=== PATIENT | female | born 1970 | race American Indian/Alaskan Native ===

== ENCOUNTER 2017-01-02 20:18 | Emergency (ER) | payer SELFPAY ==
[2017-01-02 20:36] VITALS: BP 142/94
[2017-01-02] MEDS ORDERED: DUONEB 0.5 MG-3 MG/3 ML SOLN IH ONE (20:51)
[2017-01-02] MEDS ORDERED: DELTASONE PO ONE (20:52)
--- NOTE | 2017-01-02 20:58 | Emergency Department Report ---
HPI - General Chief Complaint: Dyspnea/Respdistress Time Seen by Provider: 01/02/17 20:34 - HPI HPI: This is a 46-year-old -[place] female who presents the emergency department with complaint of some wheezing, tightness and shortness of breath that has been going on for the past 1-2 days. The patient has a history of asthma and thinks she is having an asthma exacerbation. She is visiting from [place], where she has a primary care physician. She does not have a current inhaler. She says that she has a nebulizer machine but is missing the mouthpiece and lost the nebulized albuterol treatments. She says she called EMS hoping they can give her a mouthpiece and some breathing treatments but says they were unable to do so without transportation to the ER. She denies any chest pain, fever, back pain, nausea, vomiting. She denies being a tobacco smoker. ED Past Medical Hx - Past Medical History Previous Medical History?: Yes Hx Hypertension: No Hx CVA: No Hx Heart Attack/AMI: No Hx Congestive Heart Failure: No Hx Diabetes: No Hx Deep Vein Thrombosis: No Hx Pulmonary Embolism: No Hx GERD: No Hx Liver Disease: No Hx Renal Disease: No Hx of Cancer: No Hx Sickle Cell Disease: No Hx Arthritis: No Hx Headaches / Migraines: No Hx Seizures: No Hx Kidney Stones: No Hx Psychiatric Treatment: No Hx Asthma: Yes Hx COPD: No Hx Tuberculosis: No Hx Dementia: No Additional medical history: lupus - Surgical History Past Surgical History?: No Hx Coronary Stent: No Hx Open Heart Surgery: No Hx Internal Defibrillator: No Hx Cholecystectomy: No Hx Appendectomy: No Hx Breast Surgery: No - Social History Smoking Status: Current Every Day Smoker Substance Use Type: None - Medications Home Medications: Home Medications Medication Instructions Recorded Confirmed Last Taken Type ALBUTEROL Inhaler [ProAir HFA 2 puff IH QID PRN #1 inhalation 01/03/17 Unknown Rx Inhaler] ALBUTEROL NEB's [Proventil 0.083% 2.5 mg IH TID PRN #1 box 01/03/17 Unknown Rx NEBS] predniSONE [Deltasone] 20 mg PO QDAY #4 tab 01/03/17 Unknown Rx ED Review of Systems ROS: Stated complaint: ASTHMA Other details as noted in HPI Comment: All other systems reviewed and negative Constitutional: denies: chills, fever Eyes: denies: eye pain, eye discharge, vision change ENT: denies: ear pain, throat pain Respiratory: shortness of breath, wheezing Cardiovascular: denies: chest pain, edema Gastrointestinal: denies: abdominal pain, nausea, diarrhea Genitourinary: denies: urgency, dysuria, discharge Musculoskeletal: denies: back pain, joint swelling, arthralgia Skin: denies: rash, lesions Neurological: denies: headache, weakness, paresthesias Physical Exam - Physical Exam Vital Signs: Vital Signs 01/02/17 20:30 Temperature 98.6 F Pulse Rate 89 Respiratory 17 Rate Blood Pressure 142/94 O2 Sat by Pulse 96 Oximetry Physical Exam: GENERAL: The patient is well-developed well-nourished. HEENT: Normocephalic. Atraumatic. Extraocular motions are intact. Patient has moist mucous membranes. Pupils equal reactive to light bilaterally. NECK: Supple. Trachea is midline. CHEST/LUNGS: There is mild expiratory wheezing throughout the chest. No tachypnea or accessory muscle use. No cough heard during examination. There is no respiratory distress noted. HEART/CARDIOVASCULAR: Regular. There is no tachycardia. There is no gallop rub or murmur. ABDOMEN: Abdomen is soft, nontender. Patient has normal bowel sounds. There is no abdominal distention. SKIN: Skin is warm and dry. NEURO: The patient is awake, alert, and oriented. The patient is cooperative. The patient has no focal neurologic deficits. The patient has normal speech and gait. MUSCULOSKELETAL: There is no tenderness or deformity. There is no limitation range of motion. There is no evidence of acute injury. ED Course Vital Signs 01/02/17 20:30 Temperature 98.6 F Pulse Rate 89 Respiratory 17 Rate Blood Pressure 142/94 O2 Sat by Pulse 96 Oximetry ED Medical Decision Making - Lab Data Result diagrams: 01/02/17 21:52 01/02/17 21:52 - EKG Data -: EKG Interpreted by Me EKG shows normal: sinus rhythm, axis, intervals, QRS complexes, ST-T waves Rate: normal - EKG Data When compared to previous EKG there are: previous EKG unavailable Interpretation: normal EKG - Radiology Data Radiology results: image reviewed interpreted by me: Chest x-ray did not show any acute process. Heart is normal shape and size. No effusions. No pneumothorax. No signs of pneumonia seen. - Medical Decision Making 46-year-old female presents emergency Department with the complaint of some wheezing, tightness in the chest that feels like an asthma exacerbation. However the patient is out of her albuterol inhaler and nebulized treatments and the mouthpiece for the nebulizer. Some labs were done on this patient to make sure that the chest tightness was in fact as well as a post-any coronary artery disease. She had a negative troponin, no leukocytosis, no electrolyte abnormalities. EKG is normal without ST elevation OK, ischemia or dysrhythmia. Chest x-ray does not show any acute process. She was given some breathing treatments and says she feels improved. Patient came out of her room asking for discharge home. She was given a prescription for albuterol inhaler and nebulizer treatments as well as steroids and the patient is headed straight across the street to the 24-hour pharmacy. She has been encouraged to return to the ER with any worsening of her symptoms or any acute distress. - Differential Diagnosis asthma, bronchitis, OK, pneumonia Critical Care Time: No Critical care attestation.: If time is entered above; I have spent that time in minutes in the direct care of this critically ill patient, excluding procedure time. ED Disposition Clinical Impression: Asthma exacerbation, Bronchospasm Disposition: DISCHARGED TO HOME OR SELFCARE Is pt being admited?: No Condition: Stable Instructions: Asthma (ED) Additional Instructions: These follow-up with a primary care doctor as soon as possible. Return to the emergency department with any worsening of your symptoms or any acute distress. Prescriptions: ALBUTEROL Inhaler [ProAir HFA Inhaler] 2 puff IH QID PRN #1 inhalation PRN Reason: Shortness Of Breath ALBUTEROL NEB's [Proventil 0.083% NEBS] 2.5 mg IH TID PRN #1 box PRN Reason: Wheezing predniSONE [Deltasone] 20 mg PO QDAY #4 tab Referrals: PRIMARY CARE, [Primary Care Provider] - 3-5 Days LAUREN SADLER MD [Staff Physician] - 3-5 Days [facility] [Outside] - 3-5 Days Time of Disposition: 00:40
[2017-01-02 22:02] LABS: Basophils % (Auto) 0.4 % (0.0-1.8); Eosinophils % (Auto) 2.7 % (0.0-4.3); Hematocrit 37.2 % (30.3-42.9); Hemoglobin 12.4 gm/dl (10.1-14.3); Mean Corpuscular HGB Conc 33 % (30-34); Mean Corpuscular Hemoglobin 31 pg (28-32); Mean Corpuscular Volume 93 fl (79-97); Platelet Count 225 K/mm3 (140-440); Red Blood Count 4.01 M/mm3 (3.65-5.03)
[2017-01-02 22:23] LABS: Anion Gap 17 mmol/L; Blood Urea Nitrogen 15 mg/dL (7-17); Calcium 8.6 mg/dL (8.4-10.2); Carbon Dioxide 24 mmol/L (22-30); Chloride 102.4 mmol/L (98-107); Glucose 82 mg/dL (65-100); Potassium 4.4 mmol/L (3.6-5.0); Sodium 139 mmol/L (137-145)
[2017-01-02] MEDS ORDERED: PROVENTIL IH ONE (23:10)
--- NOTE | 2017-01-03 08:34 | XRay Report ---
AP CHEST :01/02/17 20:18:00 CLINICAL: Difficulty breathing. COMPARISON:None. FINDINGS: Normal heart and pulmonary vasculature. The lungs are normally expanded and clear. The bones and soft tissues are normal. IMPRESSION: Normal chest.
== END 2017-01-03 01:32 | disposition home or self-care (01) ==
LOC: ED 20:18
DX: J45.901 Unspecified asthma with (acute) exacerbation (principal); M32.9 Systemic lupus erythematosus, unspecified; F17.200 Nicotine dependence, unspecified, uncomplicated
CPT/HCPCS: 36415; 71010; 80048; 84484; 85025; 93005; 93010; 94640; 99284; J7512

== ENCOUNTER 2017-02-21 11:25 | Emergency (ER) | payer SELFPAY ==
--- NOTE | 2017-02-21 12:12 | Emergency Department Report ---
Entered by ANGELA CHAO, acting as scribe for MONICA GONZALEZ NP. Chief Complaint: Abdominal Pain Stated Complaint: ABDOMINAL PAIN Time Seen by Provider: 02/21/17 12:05 - HPI History of Present Illness: Patient is non-toxic, non ill appearing, in no acute distress with c/o right lower pelvic pain since this morning. Rates pain 10/10 in severity. Patient states she has hernia in right pelvic area. Denies abdominal pain nausea, vomiting, chest pain, SOB, fever, chills, hematuria, and dysuria LMP 10/27/2016 - ROS Review of Systems: Reports right lower pelvic pain Denies abdominal pain, nausea, vomiting, chest pain, SOB, fever, chills Denies hematuria and dysuria - Exam Vital Signs: Vital Signs 02/21/17 11:31 Temperature 97.8 F Pulse Rate 72 Respiratory 16 Rate Blood Pressure 128/85 O2 Sat by Pulse 100 Oximetry Physical Exam: GENERAL: The patient is a well-developed, well-nourished female in no apparent distress. Patient is alert and acting appropriately for age. Alert and oriented 3, no apparent distress, normal gait, atraumatic. Constitutional: Non toxic appearing, NAD. Abdomen: Abdomen is non-distended, soft with no tenderness to palpation in all quadrants. No abdominal bruit. No epigastric pain. Negative [place] Tenderness. Negative Freeland sign. : Right inguinal hernia present that is put back and is TTP. MSE screening note: Focused history and physical exam performed. Due to findings the following was ordered: CBC, CMP, serum HCG qualitative, lipase stat, UA will be ordered on patient ED Disposition for MSE Condition: Stable Instructions: Abdominal Pain (ED) This documentation as recorded by the scribe,ANGELA CHAO,accurately reflects the service I personally performed and the decisions made by ,MONICA GONZALEZ, SB.
[2017-02-21 12:36] LABS: Bilirubin,Urine NEG (Negative); Blood,Urine NEG (Negative); Ketones,Urine NEG (Negative); Leukocyte Esterase,Urine NEG (Negative); Mucus,Urine FEW /HPF; Nitrite,Urine NEG (Negative); Protein,Urine <15 mg/dL mg/dL (Negative)
[2017-02-21 13:13] LABS: Eosinophils % (Auto) 3.2 % (0.0-4.3); Hematocrit 37.6 % (30.3-42.9); Hemoglobin 12.6 gm/dl (10.1-14.3); Mean Corpuscular HGB Conc 34 % (30-34); Mean Corpuscular Hemoglobin 31 pg (28-32); Mean Corpuscular Volume 91 fl (79-97); Platelet Count 280 K/mm3 (140-440); Red Blood Count 4.14 M/mm3 (3.65-5.03); Red Cell Distribution Width 13.2 % (13.2-15.2); White Blood Count 5.4 K/mm3 (4.5-11.0)
[2017-02-21 13:31] LABS: Anion Gap 18 mmol/L; BUN/Creatinine Ratio 15.45; Blood Urea Nitrogen 17 mg/dL (7-17); Calcium 9.2 mg/dL (8.4-10.2); Carbon Dioxide 27 mmol/L (22-30); Chloride 104.5 mmol/L (98-107); Glucose 84 mg/dL (65-100); Lipase 39 units/L (13-60); Potassium 4.6 mmol/L (3.6-5.0); Sodium 145 mmol/L (137-145)
[2017-02-21 18:16] VITALS: BP 109/70
[2017-02-21] MEDS ORDERED: MORPHINE IV ONE (18:18)
--- NOTE | 2017-02-21 18:21 | Emergency Department Report ---
ED Abdominal Pain HPI - General Chief Complaint: Abdominal Pain Stated Complaint: ABDOMINAL PAIN Time Seen by Provider: 02/21/17 18:13 Source: patient, EMS Mode of arrival: Ambulatory Limitations: No Limitations - History of Present Illness Initial Comments: Patient is a 38-year-old female with a history of asthma and lupus presented to the ED with right inguinal pain. Reports she has a hernia in the area and has been causing her more pain and has been protruding more than usual for the last few days. Pain is sharp, severe, and a 10 out of 10. She denies any overlying skin changes and reports the hernia does reduce when she is lying flat. Otherwise no fevers, chills, headaches, nausea, vomiting, diarrhea, chest pain, shortness of breath, abdominal pain, extremity pain, trauma, falls, sick contacts, or travel Severity scale (0 -10): 10 - Related Data Previous Rx's Medication Instructions Recorded Last Taken Type ALBUTEROL Inhaler [ProAir HFA 2 puff IH QID PRN #1 inhalation 01/03/17 Unknown Rx Inhaler] ALBUTEROL NEB's [Proventil 0.083% 2.5 mg IH TID PRN #1 box 01/03/17 Unknown Rx NEBS] predniSONE [Deltasone] 20 mg PO QDAY #4 tab 01/03/17 Unknown Rx Allergies Allergy/AdvReac Type Severity Reaction Status Date / Time No Known Allergies Allergy Unverified 01/02/17 23:43 ED Review of Systems ROS: Stated complaint: ABDOMINAL PAIN Other details as noted in HPI Comment: All other systems reviewed and negative ED Past Medical Hx - Past Medical History Previous Medical History?: Yes Hx Hypertension: No Hx CVA: No Hx Heart Attack/AMI: No Hx Congestive Heart Failure: No Hx Diabetes: No Hx Deep Vein Thrombosis: No Hx Pulmonary Embolism: No Hx GERD: No Hx Liver Disease: No Hx Renal Disease: No Hx Sickle Cell Disease: No Hx Arthritis: No Hx Headaches / Migraines: No Hx Seizures: No Hx Kidney Stones: No Hx Psychiatric Treatment: No Hx Asthma: Yes Hx COPD: No Hx Tuberculosis: No Hx Dementia: No Additional medical history: lupus, hernia - Surgical History Hx Coronary Stent: No Hx Open Heart Surgery: No Hx Internal Defibrillator: No Hx Cholecystectomy: No Hx Appendectomy: No Hx Breast Surgery: No - Social History Smoking Status: Current Every Day Smoker Substance Use Type: Alcohol - Medications Home Medications: Home Medications Medication Instructions Recorded Confirmed Last Taken Type ALBUTEROL Inhaler [ProAir HFA 2 puff IH QID PRN #1 inhalation 01/03/17 Unknown Rx Inhaler] ALBUTEROL NEB's [Proventil 0.083% 2.5 mg IH TID PRN #1 box 01/03/17 Unknown Rx NEBS] predniSONE [Deltasone] 20 mg PO QDAY #4 tab 01/03/17 Unknown Rx ED Physical Exam - General Limitations: No Limitations General appearance: alert, in no apparent distress - Head Head exam: Present: atraumatic, normocephalic - Eye Eye exam: Present: normal appearance - ENT ENT exam: Present: mucous membranes moist - Neck Neck exam: Present: normal inspection - Respiratory Respiratory exam: Present: normal lung sounds bilaterally. Absent: respiratory distress - Cardiovascular Cardiovascular Exam: Present: regular rate, normal rhythm. Absent: systolic murmur, diastolic murmur, rubs, gallop - GI/Abdominal GI/Abdominal exam: Present: soft, tenderness (R inguinal hernia palpated, reducible, no overlying skin changes), normal bowel sounds. Absent: distended, guarding, rebound, rigid - External exam: Present: normal external exam - Extremities Exam Extremities exam: Present: normal inspection - Back Exam Back exam: Present: normal inspection - Neurological Exam Neurological exam: Present: alert, oriented X3 - Psychiatric Psychiatric exam: Present: normal affect, normal mood - Skin Skin exam: Present: warm, dry, intact, normal color. Absent: rash ED Course Vital Signs 02/21/17 02/21/17 11:31 18:11 Temperature 97.8 F Pulse Rate 72 79 Respiratory 16 16 Rate Blood Pressure 128/85 Blood Pressure 109/70 [Left] O2 Sat by Pulse 100 99 Oximetry ED Medical Decision Making - Lab Data Result diagrams: 02/21/17 12:21 02/21/17 12:21 - Radiology Data Radiology results: report reviewed CT abdomen and pelvis: Containing right inguinal hernia no evidence of strangulation or incarceration. Results the patient patient given copy of CT results, she will follow-up with her own surgeon. Critical care attestation.: If time is entered above; I have spent that time in minutes in the direct care of this critically ill patient, excluding procedure time. ED Disposition Clinical Impression: Abdominal pain, Inguinal hernia Disposition: DC-01 TO HOME OR SELFCARE Is pt being admited?: No Condition: Stable Instructions: Abdominal Pain (ED), Inguinal Hernia (ED) Additional Instructions: Please follow up with your surgeon Referrals: PRIMARY CARE,MD [Primary Care Provider] - 3-5 Days
[2017-02-21] MEDS ORDERED: NACL ONE (18:40)
--- NOTE | 2017-02-21 19:49 | Cat Scan Report ---
FINAL REPORT EXAM: CT ABDOMEN PELVIS W CON HISTORY: RLQ pain TECHNIQUE: Serial axial images through the abdomen and pelvis with coronal and sagittal reconstruction. Intravenous administration of 100 milliliters Omnipaque 300 PRIORS: None. FINDINGS: No focal consolidations are seen in the lung bases. No pleural effusion is seen. Liver, gallbladder, pancreas, spleen and adrenal glands appear within normal limits. Kidneys appear normal. Aorta is normal in caliber. Bladder appears normal. No gross abnormality is seen in the uterus or adnexa. No free fluid. The appendix appears normal. No gross bowel abnormality is identified. No acute osseous abnormality is identified. Fat containing right inguinal hernia is noted. IMPRESSION: 1. Normal appearing appendix. 2. No free fluid or inflammatory changes are seen in the abdomen or pelvis. 3. Fat containing right inguinal hernia is noted.
[2017-02-21] MEDS ORDERED: TORADOL IV ONE (19:53)
== END 2017-02-21 20:12 | disposition home or self-care (01) ==
LOC: ED 11:25
DX: K40.90 Unilateral inguinal hernia, without obstruction or gangrene, not specified as recurrent (principal); R10.30 Lower abdominal pain, unspecified; J45.909 Unspecified asthma, uncomplicated; F17.200 Nicotine dependence, unspecified, uncomplicated
CPT/HCPCS: 36415; 74177; 80048; 81001; 83690; 84703; 85025; 96374; 99284; J1885; J2270; Q9967

== ENCOUNTER 2017-03-03 22:33 | Emergency (ER) | payer SELFPAY ==
[2017-03-03 22:41] VITALS: BP 138/86
[2017-03-03 23:17] LABS: Basophils % (Auto) 0.6 % (0.0-1.8); Hematocrit 37.2 % (30.3-42.9); Hemoglobin 12.1 gm/dl (10.1-14.3); Mean Corpuscular HGB Conc 33 % (30-34); Mean Corpuscular Hemoglobin 30 pg (28-32); Mean Corpuscular Volume 93 fl (79-97); Platelet Count 287 K/mm3 (140-440); Red Cell Distribution Width 13.4 % (13.2-15.2)
[2017-03-03 23:24] LABS: INR 0.93 (0.87-1.13)
[2017-03-03 23:30] LABS: Anion Gap 14 mmol/L; BUN/Creatinine Ratio 14.44; Blood Urea Nitrogen 13 mg/dL (7-17); Calcium 9.2 mg/dL (8.4-10.2); Carbon Dioxide 31 mmol/L (22-30); Chloride 102.2 mmol/L (98-107); Glucose 94 mg/dL (65-100); Potassium 4.3 mmol/L (3.6-5.0); Sodium 143 mmol/L (137-145)
--- NOTE | 2017-03-04 10:51 | ED Elopement Review ---
ED Pt Elopement review - Results review Lab results: Laboratory Tests 03/03/17 03/03/17 03/03/17 22:47 22:47 22:47 WBC 8.0 RBC 4.00 Hgb 12.1 Hct 37.2 MCV 93 MCH 30 MCHC 33 RDW 13.4 Plt Count 287 Lymph % (Auto) 29.9 Ness % (Auto) 5.4 Eos % (Auto) 1.0 Baso % (Auto) 0.6 Lymph # 2.4 Ness # 0.4 Eos # 0.1 Baso # 0.0 Seg Neutrophils % 63.1 Seg Neutrophils # 5.0 PT 12.9 INR 0.93 APTT 40.0 H Sodium 143 Potassium 4.3 Chloride 102.2 Carbon Dioxide 31 H Anion Gap 14 BUN 13 Creatinine 0.9 Estimated GFR > 60 BUN/Creatinine Ratio 14.44 Glucose 94 Calcium 9.2 Troponin T < 0.010 03/04/17 02:26 WBC RBC Hgb Hct MCV MCH MCHC RDW Plt Count Lymph % (Auto) Ness % (Auto) Eos % (Auto) Baso % (Auto) Lymph # Ness # Eos # Baso # Seg Neutrophils % Seg Neutrophils # PT INR APTT Sodium Potassium Chloride Carbon Dioxide Anion Gap BUN Creatinine Estimated GFR BUN/Creatinine Ratio Glucose Calcium Troponin T < 0.010 - Call Back decision Pt Call Back Decision: Pt to F/U with PMD
== END 2017-03-04 03:34 | disposition left against medical advice (07) ==
LOC: ED 22:33
DX: R07.89 Other chest pain (principal); R06.00 Dyspnea, unspecified; R11.0 Nausea; J45.909 Unspecified asthma, uncomplicated; M32.9 Systemic lupus erythematosus, unspecified; F17.200 Nicotine dependence, unspecified, uncomplicated; Z53.21 Procedure and treatment not carried out due to patient leaving prior to being seen by health care provider
CPT/HCPCS: 36415; 80048; 84484; 85025; 85610; 85730; 93005; 93010